=== PATIENT | male | born 1980 | race Caucasian/White ===

== ENCOUNTER 2016-10-17 11:33 | Emergency (ER) | payer BC ==
[~2016-10-17] VITALS: Ht 180.3 cm; Wt 97.5 kg
[2016-10-17 11:35] VITALS: BP 144/98
--- NOTE | 2016-10-17 12:08 | EKG ---
[facility] [address] [place] [address] Test Date: 2016-10-17 Test Time: 11:52:16 Pat Name: LISA BA Department: Room: Gender: M Titrator: : 1980 Requested By: Huong DUKE Order Number: [id number] Reading MD: Ely Chang Measurements Intervals [place] Rate: 80 P: 43 NE: 158 QRS: 10 QRSD: 98 T: 30 QT: 346 QTc: 402 Interpretive Statements SINUS RHYTHM NORMAL EKG RI6.01 Unconfirmed report No previous ECG available for comparison Electronically Signed On 10-20-2016 15:52:15 CDT by Ely Chang
--- NOTE | 2016-10-17 12:21 | PHYS DOC ---
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 Symptoms last for 5 minutes or less. States sometimes happens daily, and sometimes does not have symptoms for a few weeks. He denies headache , vision changes, chest pain, palpitations, cough, dyspnea, numbness, tingling, weakness. Denies recent illness, nasal congestion, rhinorrhea, ear pain, tinnitus, aspirin use. He also mentions some weeks of itchy rash to his groin and perineum that is bumpy with no discoloration. Review of Systems Review of Systems Constitutional: Denies fever or chills [] Eyes: Denies change in visual acuity, redness, or eye pain [] HENT: Denies nasal congestion or sore throat [] Respiratory: Denies cough or shortness of breath [] Cardiovascular: No additional information not addressed in HPI [] GI: Denies abdominal pain, nausea, vomiting, bloody stools or diarrhea [] : Denies dysuria or hematuria [] Musculoskeletal: Denies back pain or joint pain [] Integument: Denies rash [] Neurologic: Denies headache, focal weakness or sensory changes [] Endocrine: Denies polyuria or polydipsia [] Allergies Allergies Allergies Coded Allergies Type Severity Reaction Last Updated Verified No Known Drug Allergies 10/17/16 No Physical Exam Physical Exam Constitutional: Well developed, well nourished, no acute distress, non-toxic appearance. [] HENT: Normocephalic, atraumatic, Left TM normal, right prosthetic ear, oropharynx moist, no oral exudates, nose normal. [] Eyes: PERRLA, EOMI. [] Neck: Normal range of motion, supple. [] Cardiovascular:Heart rate regular rhythm, no murmur [] Lungs & Thorax: Bilateral breath sounds clear to auscultation [] Abdomen: Bowel sounds normal, soft, no tenderness. [] Genitourinary: Has skin colored pedunculated lesions through perineum that are nontender with no surrounding inflammation. Otherwise normal appearing genitalia Skin: Warm, dry, no erythema, no rash. [] Back: Normal range of motion. [] Extremities: No tenderness, ROM intact. [] Neurologic: Alert and oriented X 3, normal motor function, normal sensory function, no focal deficits noted. [] Psychologic: Affect normal, judgement normal, mood normal. [] Current Patient Data Vital Signs Vital Signs Date Time Temp Pulse Resp B/P Pulse Ox O2 Delivery O2 Flow Rate FiO2 10/17/16 11:35 97.5 78 18 144/98 99 Room Air 97.5 EKG EKG EKG as interpreted by me as normal sinus rhythm, rate 80, no ST-T changes, normal intervals, no ectopy Course & Med Decision Making Course & Med Decision Making Pertinent Labs and Imaging studies reviewed. (See chart for details) Discussed he should follow-up with neurology for likely vertigo symptoms. Also referred to general surgery for concern of condyloma acuminata. Also discussed he should get a primary care doctor. Return precautions given. He understands and agrees with plan. Dragon Disclaimer Dragon Disclaimer This electronic medical record was generated, in whole or in part, using a voice recognition dictation system. 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 Brock. Follow-up with general surgery clinic for perineal rash, Dr. Kimbrough. Also follow up with your primary care doctor. Return for any concerns. Problem Qualifiers Huong DUKE MD Oct 17, 2016 12:21
== END 2016-10-17 12:43 | disposition home or self-care (01) ==
LOC: ER 11:33
DX: R42 Dizziness and giddiness (principal); A63.0 Anogenital (venereal) warts; F17.200 Nicotine dependence, unspecified, uncomplicated; F12.10 Cannabis abuse, uncomplicated
CPT/HCPCS: 82947; 93005; 99285-25

== ENCOUNTER 2018-09-10 19:53 | Emergency (ER) | payer OTHER ==
[~2018-09-10] VITALS: Ht 180.3 cm; Wt 98.0 kg
[~2018-09-10 19:53] MED LIST: AMLO10TA4 PO; IBUP-1007 PO; PHEN100C PO
[2018-09-10 20:38] VITALS: BP 140/93
[2018-09-10] MEDS ORDERED: CYCL10TA2 PO (22:13)
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
== END 2018-09-10 22:15 | disposition home or self-care (01) ==
LOC: ER 19:53
DX: S13.8XXA Sprain of joints and ligaments of other parts of neck, initial encounter (principal); M25.511 Pain in right shoulder; V43.53XA Car driver injured in collision with pick-up truck in traffic accident, initial encounter; Y93.89 Activity, other specified; Y92.410 Unspecified street and highway as the place of occurrence of the external cause; Y99.8 Other external cause status
CPT/HCPCS: 99283